=== PATIENT | male | born 1975 | race Caucasian/White ===

== ENCOUNTER → 2017-06-12 | Day surgery (SDC) | payer OTHER ==
[2017-06-06 07:37] VITALS: BMI 25.0
[~2017-06-12] VITALS: Ht 167.6 cm; Wt 71.8 kg
[~2017-06-12] MED LIST: ATROPINE SULFATE 0.1 MG/ML 5ML SYR IV PRN; DOXE10CO2 PO; EpHEDrine SULFATE INJ 50 MG/ML AMP IV PRN; INSU1INJ SC; INSUINJ17 SC; LEDI1TAB PO; LIDOCAINE HCL 2% 2 ML VIAL (20MG/ML) ONE; LISI-461 PO; MIDAZOLAM HCL 1 MG/ML 2ML VIAL ONE; NADO20TA PO; PROPOFOL IV EMULSION 10 MG/ML 20 ML VIAL IV ONE; RIBA200T4 PO; SODIUM CHLORIDE 0.9% 500ML 500 ML IV ONE
[2017-06-12 08:08] VITALS: Ht 167.6 cm; Wt 71.8 kg
--- NOTE | 2017-06-12 08:17 | Endo History and Physical ---
History & Physical Date of Service: Jun 12, 2017. Chief Complaint: Referring Physician: History of Present Illness 41 yo presenting for follow up of known esophageal varices Past Surgical History Hx Cardiac Surgery: No Hx Internal Defibrillator: No Hx Pacemaker: No Hx Abdominal Surgery: No Hx of Implantable Prosthesis: No Hx Post-Op Nausea and Vomiting: No Hx Cancer Surgery: No Hx Thoracic Surgery: No Hx Orthopedic: No Hx Urinary Tract Surgery: No Social History Smoking Status: Former Smoker Hx Substance Use: No Hx Alcohol Use: No Allergies Coded Allergies: No Known Allergies (Verified , 06/12/17) Current Medications Reported Home Medications Medications Dose Route/Sig Max Daily Dose Days Date Category Ribavirin (Ribavirin (Hepatitis C)) 200 Mg Tab 1 Tab PO 06/06/17 Reported Harvoni 90-400 mg (Ledipasvir-Sofosbuvir) 1 Tab Tab 1 Tab PO QAM 05/31/16 Reported Corgard (Nadolol) 20 Mg Tab 20 Mg PO TID 03/24/16 Reported Zestril (Lisinopril) 10 Mg Tab 10 Mg PO QAM 03/24/16 Reported Humulin-R (Insulin Human Regular) Inj Unknown Dose SC UD 03/24/16 Reported Humulin 70/30 (Insulin Human Isoph/Insulin Regular) Susp 50 Units SC QPM 03/24/16 Reported Humulin 70/30 (Insulin Human Isoph/Insulin Regular) Susp 60 Units SC QAM 03/24/16 Reported Doxepin Hcl 10 Mg/Ml Con 10 Ml PO HS 03/24/16 Reported Vital Signs Weight (Kilograms): 71.82 Height (Feet): 5 Height (Inches): 6 Physical Exam General Appearance: WD/WN, no apparent distress Respiratory/Chest: Respiratory effort: no dyspnea Auscultation: breath sounds normal, CTA except as noted Cardiovascular: Heart Auscultation: RRR, normal S1, normal S2 Abdomen: Inspection & Palpation: soft, non-distended, no tenderness, guarding & rebound Assessment and Plan Plan for EGD for variceal follow up
--- NOTE | 2017-06-12 09:12 | Anesthesiology Progress Note ---
Anesthesia Post Op Note Date & Time Jun 12, 2017 at 09:11 Vital Signs Pain Intensity: 0 Vital Signs Past 12 Hours Date Time Temp Pulse Resp B/P (MAP) Pulse Ox O2 Delivery O2 Flow Rate FiO2 06/12/17 08:55 77 20 115/75 (88) 96 Room Air 06/12/17 08:38 36.9 79 18 158/109 (125) 94 Room Air Notes Mental Status: alert / awake / arousable, participated in evaluation Pt Amnestic to Procedure: Yes Nausea / Vomiting: adequately controlled Pain: adequately controlled Airway Patency, RR, SpO2: stable & adequate BP & HR: stable & adequate Hydration State: stable & adequate Anesthetic Complications: no major complications apparent
--- NOTE | 2017-06-12 09:17 | Discharge Instructions ---
Endoscopy Patient Instructions Date / Procedure(s) Performed Jun 12, 2017. EGD Allergy Information Coded Allergies: No Known Allergies (Verified , 06/12/17) Discharge Date / Findings Jun 12, 2017. Small varices Continue nadolol and titrate for a pulse of 55-65 bpm Provider Instructions Activity Restrictions - No exercising or heavy lifting for 24 hours. - Do not drink alcohol the day of the procedure. - Do not drive a car or operate machinery until the day after the procedure. - Do not make any important decisions or sign important papers in 24 hours after the procedure. Following Day: - Return to full activity which may include returning to work/school. Diet Start your diet with liquids and light foods (jello, soup, juice, toast). Then eat your usual diet if not nauseated. Treatment For Common After Affects For mild abdominal pain, bloating, or excessive gas: - Rest - Eat lightly - Lie on right side Follow-Up Information Follow-up with ROSMERY Cosby as scheduled Anesthesia Information What You Should Know You have had a procedure that required some medicine to reduce anxiety and discomfort. This treatment is called moderate sedation. After receiving the treatment, you may be sleepy, but you will be able to breathe on your own. The effects of the treatment may last for several hours. Follow these instructions along with Activity/Diet recommendations noted above: * Do NOT do anything where dizziness or clumsiness would be dangerous. * Rest quietly at home today, then you can be up and about tomorrow. * Have a responsible person stay with you the rest of today. * You may have had an I.V. today. If so, you may take the dressing off later today. Recommendations Call your doctor if: * Trouble breathing * Continuous vomiting for more than 24 hours * Temperature above 101 degrees * Severe abdominal pain or bloating * Pain not relieved by pain medicine ordered * There is increased drainage or redness from any incision * A large amount of rectal bleeding greater than 2-3 tablespoons. (If you had a polyp/s removed or have hemorrhoids, a small amount of blood - from the rectum is to be expected.) * You have any unanswered questions or concerns. IN THE EVENT OF A SERIOUS EMERGENCY, GO TO THE NEAREST EMERGENCY ROOM Your discharge instructions were prepared by provider Guicho Costa. Patient Instructions Signature Page Anshu Aguila Patient (or Guardian) Signature/Date: I have read and understand the instructions given to me by my caregivers. Caregiver/RN/Doctor Signature/Date: The above-named patient and/or guardian has received patient instructions on this date. + Original Patient Signature Page (only) stays with chart. Please make copy for patient.
--- NOTE | 2017-06-12 09:17 | GI REPORT ---
Procedure Date: 06/12/2017 8:49 AM Procedure: Upper GI endoscopy Indications: Follow-up of esophageal varices Medicines: General Anesthesia Complications: No immediate complications. Estimated blood loss: None. Estimated Blood Loss: Estimated blood loss: none. Procedure: Pre-Anesthesia Assessment: - Pre-Anesthesia Assessment: - Prior to the procedure, a History and Physical was performed, and patient medications, allergies and sensitivities were reviewed. The patient's tolerance of previous anesthesia was reviewed. Please see [facility] for complete details. - The risks and benefits of the procedure and the sedation options and risks were discussed with the patient. All questions were answered and informed consent was obtained. - Patient identification and proposed procedure were verified prior to the procedure by the physician and the nurse. The procedure was verified in the pre-procedure area in the procedure room. After obtaining informed consent, the endoscope was passed carefully and meticuously under direct vision and only advanced when the lumen was clearly identified, C02 insuflation was utilized throughout the entirity of the procedure. Throughout the procedure, the patient's blood pressure, pulse, and oxygen saturations were monitored continuously. After obtaining informed consent, the endoscope was passed under direct vision. Throughout the procedure, the patient's blood pressure, pulse, and oxygen saturations were monitored continuously. The scope was introduced through the mouth, and advanced to the second part of duodenum. The upper GI endoscopy was accomplished without difficulty. The patient tolerated the procedure well. Findings: Small (< 5 mm) varices were found in the lower third of the esophagus. The entire examined stomach was normal. The examined duodenum was normal. Impression: - Small (< 5 mm) esophageal varices. - Normal stomach. - Normal examined duodenum. - No specimens collected. Recommendation: - Discharge patient to home (with escort). - Return to referring physician as previously scheduled. - Continue Nadolol and titrate for a pulse of 55-65 BPM Guicho Costa MD 06/12/2017 9:16:09 AM This report has been signed electronically. Note Initiated On: 06/12/2017 8:49 AM I attest to the content of the Intraoperative Record and orders documented therein, exceptions below
[2017-06-12 09:30] VITALS: BP 150/100; PULSE 77; O2SAT 97
== END | disposition home or self-care (01) ==
LOC: C.GI 07:37
PROVIDERS: ATTEND Internal Medicine
DX: I85.00 Esophageal varices without bleeding (principal); Z87.891 Personal history of nicotine dependence; I10 Essential (primary) hypertension; E78.5 Hyperlipidemia, unspecified; K74.60 Unspecified cirrhosis of liver; E10.9 Type 1 diabetes mellitus without complications; B19.20 Unspecified viral hepatitis C without hepatic coma; F34.1 Dysthymic disorder